=== PATIENT | male | born 1940 | race African-American/Black ===

== ENCOUNTER 2024-08-20 10:35 | Outpatient (CLI) | payer OTHER | END 2024-08-20 23:59 | disposition home or self-care (01) | LOC: CARD DIAG 10:35 | PROVIDERS: ATTEND Chiropractor | DX: I08.8 Other rheumatic multiple valve diseases (principal); E11.9 Type 2 diabetes mellitus without complications; I25.9 Chronic ischemic heart disease, unspecified | CPT/HCPCS: 93306 ==